=== PATIENT | female | born 1970 | race Caucasian/White ===

== ENCOUNTER 2021-05-26 07:50 | Emergency (ER) | payer OTHER ==
[~2021-05-26] VITALS: Ht 162.6 cm; Wt 83.9 kg
[2021-05-26] MEDS ORDERED: TDAP DIPH,PERTUSS,TET VAC/PF 0.5 ML DISP.SYRIN IM ONE ×2 (08:00→08:27)
[2021-05-26] MEDS ORDERED: IV NORMAL SALINE 1000 ML BAG IV ONE ×2 (08:00→08:45)
[2021-05-26] MEDS ORDERED: MORPHINE SULFATE 2 MG/1 ML DISP.SYRIN IV ONE (08:00)
[2021-05-26] MEDS ORDERED: NEOMY/BACITRA/POLYMYXIN B OINT UD PACKET TP ONE ×2 (08:00→08:27)
[2021-05-26] MEDS ORDERED: ONDANSETRON 4 MG/2 ML VIAL IV ONE (08:00)
[2021-05-26] MEDS ORDERED: MORPHINE SULFATE 4 MG/1 ML DISP.SYRIN ONE (08:16)
[2021-05-26] MEDS ORDERED: ONDANSETRON 4 MG/2 ML VIAL ONE (08:16)
[2021-05-26] MEDS ORDERED: IV NORMAL SALINE 250 ML IV ONE (08:22)
[2021-05-26] MEDS ORDERED: IOHEXOL 300MG/ML 100 ML INFUS..BTL ONE (08:22)
[2021-05-26] MEDS ORDERED: SWABABLE VALVE TRANSFER SET EA MC ONE (08:22)
[2021-05-26 08:23] LABS: HEMATOCRIT 42.6 % (31.2-41.9); MEAN CORPUSCULAR HEMOGLOBIN 32.5 uug (24.7-32.8); MEAN CORPUSCULAR VOLUME 94.9 fL (75.5-95.3); PLATELET COUNT (AUTO) 390 K/uL (179-408)
--- NOTE | 2021-05-26 08:26 | NUR ---
Pt signed consent for IV contrasted Ct, placed in the chart.
[2021-05-26 08:36] LABS: BILIRUBIN,DIRECT 0.2 mg/dL (0.0-0.2); BILIRUBIN,TOTAL 0.5 mg/dL (0.2-1.0); POTASSIUM 3.1 mmol/L (3.5-5.1); TOTAL PROTEIN, SERUM 7.1 g/dL (6.4-8.2)
[2021-05-26] MEDS ORDERED: HYDROMORPHONE 1 MG/1 ML DISP.SYRIN ONE (08:42)
[2021-05-26] MEDS ORDERED: HYDROMORPHONE 1 MG/1 ML DISP.SYRIN IV ONE (08:45)
--- NOTE | 2021-05-26 09:44 | NUR ---
Knee abrasion site cleand and dressed per MD order.
[2021-05-26] MEDS ORDERED: HYDR-3980 PO (11:14)
[2021-05-26] MEDS ORDERED: SULF1TAB48 PO (11:14)
[2021-05-26] MEDS ORDERED: CEPH500C2 PO (11:14)
--- NOTE | 2021-05-26 11:14 | NUR ---
Crutches dispensed. Pt instructed on proper use of crutches. Patient able to demonstrate correct use of crutches.
[2021-05-26] MEDS ORDERED: SULFAMETH/TRIMETH 800/160 MG TABLET PO ONE (11:15)
[2021-05-26] MEDS ORDERED: CEphaleXIN 500 MG CAPSULE PO ONE (11:15)
--- NOTE | 2021-05-26 11:26 | NUR ---
IV removed. Catheter intact and site benign. Pressure and 4x4 gauze applied to site. No bleeding noted.
[2021-05-26 11:27] VITALS: BP 105/69
--- NOTE | 2021-05-26 11:28 | NUR ---
Patient discharged to home in stable condition. Written and verbal after care instructions given. Patient verbalizes understanding of instructions. Stressed follow up or return to ER for worsening s/s.
== END 2021-05-26 11:28 | disposition home or self-care (01) ==
LOC: ER 07:50
DX: S39.91XA Unspecified injury of abdomen, initial encounter (principal); V28.4XXA Motorcycle driver injured in noncollision transport accident in traffic accident, initial encounter; Y92.411 Interstate highway as the place of occurrence of the external cause; M25.562 Pain in left knee; Z82.49 Family history of ischemic heart disease and other diseases of the circulatory system; M25.762 Osteophyte, left knee; M50.321 Other cervical disc degeneration at C4-C5 level; E87.6 Hypokalemia
CPT/HCPCS: 29505; 36415; 71045; 72040; 73564; 73590; 74177; 80048; 80076; 84702; 85025; 85730; 86850; 86900; 86901; 90471; 90715; 96361; 96374; 96375; 99291; J1170; J2270; J2405; Q9967; A4217; A4663; J7030; J7050